=== PATIENT | male | born 2005 | race Caucasian/White ===

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

== ENCOUNTER → 2023-12-22 09:29 | Outpatient (CLI) | payer BC, SELFPAY ==
--- NOTE | ~2023-12-22 | XR_ITS ---
XR shoulder RT min 2V Ordering provider: Jagruti Campbell NP History: . M25.511Pain in right shoulder for two months,no know injury . Comparison: None. FINDINGS: BONES: No acute fracture or dislocation. JOINT SPACES: The acromioclavicular joint is normal. The glenohumeral joint is normal. SOFT TISSUES: Normal. IMPRESSION: No acute osseous abnormality right shoulder. Reviewed, dictated and finalized at location A.
== END ==
LOC: EXPTRAD 09:31
PROVIDERS: PCP Nurse Practitioner Family; Visit Provider Nurse Practitioner Family
DX: M25.511 Pain in right shoulder (principal)
CPT/HCPCS: 73030

== ENCOUNTER 2024-04-23 10:52 | Outpatient (CLI) | payer BC, SELFPAY ==
--- NOTE | ~2024-04-23 | MR_ITS ---
MRI of the right shoulder Technique: Axial proton-density fat-sat images, coronal proton density fat-sat and T2 fat-sat images, and sagittal T1-weighted and T2 fat-sat images were acquired. Clinical History: Pain Findings: No significant degenerative changes at the AC joint. Coracoclavicular, coracoacromial, and coracohumeral ligaments are intact. Supraspinatus and infraspinatus tendons are intact, without partial or full-thickness tear. Subscapul cecilia tendon is intact, with mild to moderate tendinosis. Tendon of long head of the biceps is intact. No labral tear identified. Inferior glenohumeral ligament is intact. No degenerative change or effusion of the glenohumeral join t. No fluid distention of the subacromial/subdeltoid bursa. No muscle atrophy or edema. Impression: [id number] subscapularis tendinosis, otherwise unremarkable exam. Reviewed, dictated and finalized at location . Impression: [id number] subscapularis tendinosis, otherwise unremarkable exam.
== END 2024-04-23 10:53 | disposition home or self-care (01) ==
LOC: MICIMG 10:53
PROVIDERS: PCP Nurse Practitioner Family; Visit Provider Nurse Practitioner Family
DX: M67.813 Other specified disorders of tendon, right shoulder (principal); M25.511 Pain in right shoulder
CPT/HCPCS: 73221

== ENCOUNTER 2024-12-26 17:15 | Observation (INO) | payer BC, SELFPAY ==
--- NOTE | ~2024-12-26 | US_ITS ---
EXAMINATION: US scrotum doppler DATE: 12/26/2024 19:30 INDICATION: Testicular pain TECHNIQUE: Sonographic evaluation of the scrotum was performed assessing grayscale appearance and col or Doppler flow. Spectral Doppler evaluation was also performed. COMPARISON: None. FINDINGS: RIGHT TESTICLE: The right testicle measures 4.1 x 2.7 x 4.0 cm. Arterial and venous flow are present. Moderate right-sided hydrocele is present. RIGHT EPIDIDYMIS: The right epididymis measures 1.6 x 1.7 x 1.4mm. LEFT TESTICLE: The left testicle measures 4.4 x 2.5 x 2.9cm. Arterial and venous flow are demonstrated. Small left-sided hydrocele is present. LEFT EPIDIDYMIS: The left epididymis measures 10 x 7 x 8mm. Possible left epididymal subcentimeter appendage is visualized. IMPRESSION: Moderate right-sided hydrocele. Small left-sided hydrocele. Possible left epididymal appendage, as detailed above. Reviewed, dictated and finalized at location A.
--- NOTE | ~2024-12-26 | CT_ITS ---
CLINICAL INDICATION: Suprapubic and epigastric abdominal pain COMPARISON: None. TECHNIQUE: Multiple contiguous axial images of the abdomen and pelvis were performed following the ad ministration of with 100 mL Omnipaque-350 intravenous contrast The dose-length product (DLP) was 383.09 mGy-cm. Automated exposure control and iterative reconstruction technique were employed. FINDINGS/OBSERVATIONS: Visualized lower thorax: The bilateral lung bases are clear. The heart is of normal size, without pericardial effusion. Liver: The liver demonstrates homogeneous enhancement and is not enlarged. Gallbladder and biliary system: The gallbladder is only minimally distended, and otherwise unremarkable. Pancreas: The pancreas enhances homogeneously without ductal dilatation. Spleen: The spleen enhances homogeneously and is not enlarged. Kidneys: The bilateral kidneys enhance symmetrically without hydronephrosis or renal calculi. Adrenal glands: Unremarkable. Gastrointestinal tract: Fecal stasis within the colon. Appendix: The fluid-filled appendix is distended and hyperemic measuring 13 mm in caliber with a appendicolith in its proximal third. Surrounding inflammatory change is also noted. Vasculature: Unremarkable. Lymph nodes: No pathologically enlarged or morphologically suspicious lymph nodes within the retroperitoneum or at the root of the mesentery. Pelvic structures: The bladder is decompressed, limiting its evaluation. The prostate gland is not enlarged. Body wall and musculoskeletal: No significant degenerative disease within the lower thoracic or lumbosacral spine. IMPRESSION: Acute, nonperforated, appendicitis, as detailed above Reviewed, dictated and finalized at location A.
[2024-12-26 17:23] VITALS: BP 119/88; PULSE 80; RESP 14; TEMP 36.2; O2SAT 99
--- NOTE | 2024-12-26 18:31 | ED_ITS ---
HPI - Abdominal Pain General Chief Complaint: Abdominal Pain Stated Complaint: ABDOMINAL PAIN Time Seen by Provider: 12/26/24 21:01 Focused HPI: 19 y/o M with no PMHx presents to the ED for abdominal pain and groin pain that started today. States the pain is in his epigastrium, suprapubic region and groin. He took pepto and a gas pill this morning which made his sx worse. Denies dysuria, hematuria, flank pain, fever, n/v/d, penile discharge, concern for STDs. No prior abdominal surgeries. GENERAL: Uncomfortable-appearing, well-nourished, and in no acute distress. HEAD: Normocephalic, atraumatic. CHEST: Clear to auscultation. ?No respiratory distress. ABD: Diffuse abdominal tenderness. No guarding or rigidity. No CVA tenderness : Chaperoned by MARIO Castaneda: Minimal tenderness to bilateral testes . No overlying skin changes or edema. No penile drainage HEART: Regular rate and rhythm.? NEURO: ?Alert and oriented x3. Patient screened in triage and initial orders placed.? ?Additional care and disposition to be based upon?diagnostic testing and treatment. History of Present Illness HPI narrative: Agree with the above triage note Related Data Home Medications ?Medication ?Instructions ?Recorded ?Confirmed ?Last Taken ?Type cetirizine 10 mg tablet (Zyrtec) 10 mg PO DAILY PRN 03/03/22 04/15/24 Unknown History Allergies Allergy/AdvReac Type Severity Reaction Status Date / Time Cephalosporins Allergy Mild Unknown Verified 12/26/24 21:27 Review of Systems 2 Review of Systems: All systems reviewed & are unremarkable except as noted in HPI and below PMFSH Past Medical History Medical History Shoulder impingement Right shoulder pain Pain of right deltoid Ganglion cyst of dorsum of right wrist Dysuria Tinea cruris Wart of hand Seasonal allergies Encounter to establish care ADHD Anxiety Allergies Family History Family History Father Alcoholism Diabetes mellitus Depression Mother Depression Thyroid disorder Grandparent Alcoholism Cancer Heart disease Grandparent Carcinoma of colon Hypertension Social History Social History Smoking status: Never smoker Alcohol intake: current Drinks per week: 10 Alcohol use details: beer, socially on weekends Substance use: never Substance use type: does not use Lack of Transportation: No Lack of Food: Never True Current Housing: I Have Housing Concerned About Future Housing: No Difficulty Paying Gas/Electric Bills: No Difficulty Paying for Meds: No Currently Unemployed: No Education: High School Diploma/GED Difficulty w/ Childcare or Family Care: No Occupation/Education: occupation 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 HEAD: Normocephalic, atraumatic. EYES: EOMI. ENT: Nares clear, no rhinorrhea or epistaxis. Mucous membranes moist. NECK: Supple. CHEST: Clear to auscultation. No respiratory distress. HEART: Regular rate and rhythm. No murmur heard. Normal peripheral pulses. ABDOMEN: Normoactive bowel sounds. Abdomen soft with point tenderness over McBurney's point. No CVA tenderness. : Chaperoned by MARIO Castaneda: No overlying skin changes, edema. Minimal tenderness bilateral testes. No penile discharge or drainage. EXTREMITIES: Normal range of motion. No edema. SKIN: Warm, dry, no rash. NEURO: No focal deficits. Alert and oriented x3 Course Vital Signs Vital signs: Vital Signs Temperature 97.2 F L 12/26/24 17:23 Pulse Rate 80 12/26/24 17:23 Respiratory Rate 14 12/26/24 17:23 Blood Pressure 119/88 12/26/24 17:23 Pulse Oximetry 99 12/26/24 17:23 Oxygen Delivery Room Air 12/26/24 17:23 Temperature 97.2 F L 12/26/24 17:23 Pulse Rate 90 12/26/24 21:26 Respiratory Rate 18 12/26/24 21: Blood Pressure 142/76 H 12/26/24 21: Pulse Oximetry 98 12/26/24 21: Oxygen Delivery Room Air 12/26/24 21:26 MDM - Abdominal Pain MDM Narrative Medical decision making narrative: 19-year-old male with no significant past medical history presents emergency department for diffuse abdominal pain that started today. Vitals are stable. Exam is significant for point tenderness over McBurney's point. He does have minimal tenderness bilateral testes. Will obtain lab work, CT abdomen pelvis and scrotal ultrasound. CBC with leukocytosis of 13. Chemistries are unremarkable. UA with 2+ ketones, no UTI. Chlamydia, gonorrhea and Trichomonas are negative. Lipase within normal limits. CT abd/pelvis: IMPRESSION: Acute, nonperforated, appendicitis, as detailed above Scrotal US: IMPRESSION: Moderate right-sided hydrocele. Small left-sided hydrocele. Possible left epididymal appendage, as detailed above. Patient updated on results. Presentation consistent with acute appendicitis. Patient was started on Zosyn and given a dose of Toradol with improvement. On re-evaluation he is resting comfortably in exam bed. Discussed findings with surgeon, Dr. Herrera, who accepts patient to his service, likely plans for OR in the morning. Patient was made NPO and started on maintenance fluids. Dr. Herrera advises against Toradol from here on out. Lab Data 12/26/24 19:07 12/26/24 19:07 Labs: Lab Results 12/26/24 Range/Units 19:07 WBC 13.0 H (4.5-10.0) K/mm3 RBC 4.98 (4.6-6.20) M/mm3 Hgb 15.5 (14.0-18.0) g/dL Hct 44.7 (42.0-52.0) % MCV 89.8 (80-100) fl MCH 31.1 (26-34) pg MCHC 34.7 (32-36) g/dl RDW 12.1 (11.5-14.5) % Plt Count 326 (150-375) k/mm3 MPV 9.5 (7.4-10.4) fl Immature Gran % (Auto) 0.4 (0-0.5) % Neut % (Auto) 85.1 H (45.5-73.1) % Lymph % (Auto) 6.3 L (18.3-44.2) % [place] % (Auto) 7.2 (2.6-8.5) % Eos % (Auto) 0.7 (0-4.4) % Baso % (Auto) 0.3 (0.2-1.2) % Lymph # (Auto) 0.82 L (0.9-3.2) K/mm3 [place] # (Auto) 0.9 H (0.1-0.6) K/mm3 Eos # (Auto) 0.1 (0-0.3) K/mm3 Baso # (Auto) 0.0 (0.0-0.1) K/mm3 Abs Immat Gran (auto) 0.05 H (0.00-0.031) K/mm3 Absolute Neuts (auto) 11.1 H (1.3-6.7) K/mm3 Absolute Nucleated RBC 0.000 (0.0-0.012) K/mm3 Nucleated RBC % 0.0 (0.0-0.2) % Sodium 138 (137-145) mmol/L Potassium 3.8 (3.4-5.0) mmol/L Chloride 100 (98-107) mmol/L Carbon Dioxide 24 (22-30) mmol/L Anion Gap 14 H (4-12) mmol/L BUN 15 (9-20) mg/dL Creatinine 0.95 (0.7-1.3) mg/dL Estim Creat Clear Calc 115 ml/min Estimated GFR > 60 (59 - ) Glucose 93 (65-110) mg/dL Calcium 10.1 (8.4-10.2) mg/dL Total Bilirubin 0.6 (0.2-1.3) mg/dL AST 33 (17-59) U/L ALT 27 (6-50) U/L Alkaline Phosphatase 69 (38-126) U/L Total Protein 8.0 (6.3-8.2) g/dL Albumin 5.1 (3.5-5.1) g/dL Lipase 75 (23-300) U/L Urine Color Yellow (Yellow) Urine Appearance Clear (Clear) Urine pH 5.5 (5.0-9.0) Ur Specific [place] 1.019 (1.001-1.035) Urine Protein Negative (Negative) mg/dL Urine Glucose (UA) Negative (Negative) mg/dL Urine Ketones 2+ H (Negative) mg/dL Ur Blood (Man) Negative (Negative) Urine Nitrate Negative (Negative) Urine Bilirubin Negative (Negative) Urine Urobilinogen 0.2 (<2.0) mg/dL Leukocyte Esterase Rfl Negative (Negative) PAULA/UL C. trachomatis (PCR) Not detected (NOT DETECTE) N. gonorrhoeae (PCR) Not detected (NOT DETECTE) T. vaginalis (PCR) Not detected (NOT DETECTE) Imaging Data Radiologist's impression: ITS Impressions Scrotum Ultrasound 12/26/24 20:00 IMPRESSION: Moderate right-sided hydrocele. Small left-sided hydrocele. Possible left epididymal appendage, as detailed above. Abdomen/Pelvis CT 12/26/24 20:09 IMPRESSION: Acute, nonperforated, appendicitis, as detailed above Discharge Plan Discharge Clinical Impression: Acute appendicitis, Hydrocele Patient Disposition: Still a Patient Condition: Stable Instructions: Antibiotic Form Patient Language: [place] Prescriptions: No Action dextroamphetamine-amphetamine [Adderall XR] 10 mg capsule,extended release 24hr 10 mg PO QAM Qty: 30 0RF cetirizine [Zyrtec] 10 mg tablet 10 mg PO DAILY PRN Follow-up/Referrals: Jagruti Campbell NP [Primary Care Provider] -
[2024-12-26] MEDS: KETOROLAC 30 MG/ML VIAL (*BKC) IV PUSH (19:08)
[2024-12-26] MEDS: FAMOTIDINE 20 MG/2 ML VIAL IV PUSH (19:08)
[2024-12-26 19:20] LABS: Basophils Percent Auto 0.3 % (0.2-1.2); Eosinophils Absolute Auto 0.1 K/mm3 (0-0.3); Eosinophils Percent Auto 0.7 % (0-4.4); Hematocrit 44.7 % (42.0-52.0); Hemoglobin 15.5 g/dL (14.0-18.0); Immature Granulocyte Absolute 0.05 K/mm3 (0.00-0.031); Immature Granulocyte Percent A 0.4 % (0-0.5); Lymphocytes Absolute Auto 0.82 K/mm3 (0.9-3.2); Lymphocytes Percent Auto 6.3 % (18.3-44.2); Mean Corpuscular HGB Conc 34.7 g/dl (32-36); Mean Corpuscular Hemoglobin 31.1 pg (26-34); Mean Corpuscular Volume 89.8 fl (80-100); Mean Platelet Volume 9.5 fl (7.4-10.4); Monocytes Absolute Auto 0.9 K/mm3 (0.1-0.6); Monocytes Percent Auto 7.2 % (2.6-8.5); Neutrophils Absolute Auto 11.1 K/mm3 (1.3-6.7); Neutrophils Percent Auto 85.1 % (45.5-73.1); Platelet Count Result 326 k/mm3 (150-375); Red Blood Count 4.98 M/mm3 (4.6-6.20); Red Cell Distribution Width 12.1 % (11.5-14.5)
[2024-12-26 19:32] LABS: Alanine Aminotransferase 27 U/L (6-50); Albumin Level 5.1 g/dL (3.5-5.1); Alkaline Phosphatase 69 U/L (38-126); Anion Gap 14 mmol/L (4-12); Aspartate Amino Transferase 33 U/L (17-59); Bilirubin,Total 0.6 mg/dL (0.2-1.3); Blood Urea Nitrogen 15 mg/dL (9-20); Calcium 10.1 mg/dL (8.4-10.2); Carbon Dioxide 24 mmol/L (22-30); Chloride 100 mmol/L (98-107); Estimated CRCL calculation 115 ml/min; Estimated Glomerular Filt Rate > 60; Glucose 93 mg/dL (65-110); Lipase 75 U/L (23-300); Potassium 3.8 mmol/L (3.4-5.0); Sodium 138 mmol/L (137-145)
[2024-12-26 20:03] LABS: Add Urine Microscopic? NO; Appearance Urine Clear (Clear); Bilirubin Urine Negative (Negative); Blood Urine Negative (Negative); Color Urine Yellow (Yellow); Glucose Urine UA Negative (Negative); Ketones Urine 2+ mg/dL (Negative); Leukocyte Esterase Ur Negative LEU/UL (Negative); Nitrate Urine Negative (Negative); Protein Urine Negative (Negative); Specific Grav Ur 1.019 (1.001-1.035); Urobilinogen Urine 0.2 mg/dL (<2.0); pH Urine 5.5 (5.0-9.0)
[2024-12-26 20:41] LABS: Trichomonas Vag PCR NOT DETECTED (NOT DETECTE)
[2024-12-26 21:04] LABS: Chlamydia trachomatis NOT DETECTED (NOT DETECTE); Neisseria gonorrhoeae PCR NOT DETECTED (NOT DETECTE)
[2024-12-26 21:20] VITALS: BP 142/76; PULSE 86; RESP 17; O2SAT 98
[2024-12-26 21:26] VITALS: BP 142/76; PULSE 90; RESP 18; O2SAT 98
[2024-12-26 21:42] LABS: Lactic Acid Reflex 0.5 mmol/L (0.7-2.0)
[2024-12-26] MEDS: PIPERACILLN/TAZ 3.375GM/NS50ML 3.375 GM/50 ML BAG IVPB (22:04)
[2024-12-26] MEDS: MORPHINE SULFATE (*CRX) 4 MG/ML INJ IV PUSH (22:51)
[2024-12-26] MEDS: SODIUM CHLORIDE 0.9% IV 1,000 ML 125 ML IV CONT (22:53)
[2024-12-26 23:27] VITALS: BP 148/64; PULSE 91; RESP 17; O2SAT 99
[2024-12-26 23:29] VITALS: BP 148/64; PULSE 94; RESP 17; O2SAT 100
[2024-12-27 00:02] VITALS: BMI 23.1
[2024-12-27 00:04] VITALS: BP 137/73; PULSE 104; RESP 18; TEMP 37.4; O2SAT 100
--- NOTE | 2024-12-27 01:43 | ADMGEN ---
This patient, Ely Tellez, was admitted to [address] [place] [address] Room 307-02. Patient/family oriented to hospital policies and general routines including ID bracelet, bed and alarms, visiting hours, pain management, procedures, bathroom and other care routines, personal items, smoking policy, room service/diet, and visiting hours. Information on how to activate the Rapid Response Team has been discussed. Patient/Family are encouraged to report perceived risks to care and to ask questions if they do not understand what they are told or what they should do.
[2024-12-27] MEDS: MORPHINE SULFATE (*CRX) 4 MG/ML INJ IV PUSH ×2 (05:39→07:46)
[2024-12-27] MEDS: PIPERACILLN/TAZ 3.375GM/NS50ML 3.375 GM/50 ML BAG IVPB ×2 (05:39→13:45)
[2024-12-27] MEDS: SODIUM CHLORIDE 0.9% IV 1,000 ML 125 ML IV CONT (05:39)
[2024-12-27 06:00] VITALS: BP 129/57; PULSE 80; RESP 18; TEMP 36.2; O2SAT 98
--- NOTE | 2024-12-27 08:05 | PM.IMHP ---
H&P: HPI History of Present Illness Date/Time: 12/27/24 08:05 Chief Complaint: Acute appendicitis Narrative: 19-year-old male presented to the emergency room with a 1 day history of worsening abdominal pain which localized right lower quadrant of the abdomen. No fever at home. White blood cell count 12,[address] scan abdomen pelvis showed a dilated inflamed appendix with a retained pedicle length. No perforation and no abscess. He has been stable overnight on IV antibiotics. He has been kept NPO. He will need to go to the operating room later this morning for an urgent laparoscopic appendectomy. Review of Systems Review of Systems: The remainder of the review of systems to include constitutional, HEENT, cardiovascular, respiratory, GI, , integumentary, musculoskeletal, endocrine, immunologic, hematologic, psychiatric, and neurologic are all negative except for which is mentioned above in the HPI. [facility] Past Medical History Medical History Shoulder impingement Right shoulder pain Pain of right deltoid Ganglion cyst of dorsum of right wrist Dysuria Tinea cruris Wart of hand Seasonal allergies Encounter to establish care ADHD Anxiety Allergies Family History Family History Father Alcoholism Diabetes mellitus Depression Mother Depression Thyroid disorder Grandparent Alcoholism Cancer Heart disease Grandparent Carcinoma of colon Hypertension Social History Social History Smoking status: Light tobacco smoker Tobacco type: smokeless tobacco Smokeless tobacco user: dissolvable tobacco Alcohol intake: current Drinks per week: 10 Alcohol use details: beer, socially on weekends Substance use: never Substance use type: does not use Do You Feel Safe in your Home?: Yes Lack of Transportation: No Lack of Food: Never True Current Housing: I Have Housing Concerned About Future Housing: No Difficulty Paying Gas/Electric Bills: No Difficulty Paying for Meds: No Currently Unemployed: No Education: High School Diploma/GED Difficulty w/ Childcare or Family Care: No Occupation/Education: occupation 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[employer], 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 [employer] Spiritual care concerns: No Meds Home Medications and Allergies Home Medications ?Medication ?Instructions ?Recorded ?Confirmed ?Type No Home Medications 12/27/24 12/27/24 History Allergies Allergy/AdvReac Type Severity Reaction Status Date / Time Cephalosporins Allergy Mild Unknown Verified 12/27/24 00:08 Vital Signs Vital Signs - 24 hr 12/26/24 17:23 12/26/24 21:20 12/26/24 21:26 Temperature 36.2 C L Pulse Rate 80 86 90 Respiratory Rate 14 17 18 Blood Pressure 119/88 142/76 H 142/76 H Pulse Oximetry 99 98 98 Oxygen Delivery Room Air Room Air 12/26/24 23:27 12/26/24 23:29 12/27/24 00:04 Temperature 37.4 C Pulse Rate 91 94 104 H Respiratory Rate 17 17 18 Blood Pressure 148/64 H 148/64 H 137/73 Pulse Oximetry 99 100 100 Oxygen Delivery 12/27/24 06:00 Temperature 36.2 C L Pulse Rate 80 Respiratory Rate 18 Blood Pressure 129/57 L Pulse Oximetry 98 Oxygen Delivery Exam Const: General: comfortable and no acute distress HENMT: Ears: TM's normal bilaterally Face/Nose/Sinus: Normal nares present Mouth: Yes moist mucous membranes Eyes: General: appearance normal, both eyes and all related structures Sclera: sclerae normal Pupils: Equal, round and reactive pupils present EOM: EOMs intact bilaterally Neck: Neck: supple and no JVD Resp: Effort & Inspection: normal respiratory effort Auscultation: clear to auscultation bilaterally Cardio: Rate: regular rate Rhythm: regular rhythm GI: Other: Soft nondistended. Moderate tenderness with guarding in the right lower quadrant over McBurney's point. No generalized peritoneal signs. No surgical scars and no ventral hernias. Skin: General skin exam: normal color and no rashes or lesions noted Neuro: General: gait normal Speech: normal speech Motor exam (neuro): 5/5 motor strength present throughout Sensory Exam: normal sensation Extrem: General: normal to inspection Psych: Mental Status: mental status grossly normal Affect: normal affect H&P: Results Labs Labs: Short CBC 12/26/24 Range/Units 19:07 WBC 13.0 H (4.5-10.0) K/mm3 Hgb 15.5 (14.0-18.0) g/dL Hct 44.7 (42.0-52.0) % Plt Count 326 (150-375) k/mm3 [facility] 12/26/24 19:07 Sodium 138 Potassium 3.8 Chloride 100 Carbon Dioxide 24 BUN 15 Creatinine 0.95 Glucose 93 Calcium 10.1 Liver Function 12/26/24 Range/Units 19:07 Total Bilirubin 0.6 (0.2-1.3) mg/dL AST 33 (17-59) U/L ALT 27 (6-50) U/L Alkaline Phosphatase 69 (38-126) U/L Albumin 5.1 (3.5-5.1) g/dL Urine 12/26/24 Range/Units 19:07 Urine Color Yellow (Yellow) Urine Appearance Clear (Clear) Urine pH 5.5 (5.0-9.0) Ur Specific [place] 1.019 (1.001-1.035) Urine Protein Negative (Negative) mg/dL Urine Glucose (UA) Negative (Negative) mg/dL Assessment and Plan Assessment and plan (1) Acute appendicitis: Qualifiers: Acute appendicitis type: with localized peritonitis Appendicitis abscess presence: without abscess Appendicitis gangrene presence: without gangrene Appendicitis perforation presence: without perforation Qualified Code(s): K35.30 - Acute appendicitis with localized peritonitis, without perforation or gangrene Code(s): K35.80 - Unspecified acute appendicitis Status: Acute Assessment and Plan: Patient appears to have an uncomplicated acute appendicitis due to appendicoliths. He has remained stable overnight. IV antibiotics have been administered. Will plan on proceeding to the operating room this morning for an urgent laparoscopic appendectomy possible open appendectomy. Risks, benefits, indications, and expected outcomes were discussed in detail with the patient and/or family. They understand and I have answered all other questions. They wished to proceed with surgery as outlined above.
--- NOTE | 2024-12-27 08:09 | WPDHPUPDATE1 ---
History and Physical Update Update Date/Time: 12/27/24 08:09 History and Physical has been reviewed, including an updated exam of the patient. There are NO changes in the patient's condition. Risks, benefits, and alternatives have been discussed and questions answered. Patient agrees to proceed with procedure.
--- NOTE | 2024-12-27 08:16 | P.PNAN_ITS ---
Anes - Initial Pre Proc Eval Procedure: Operation Date: 12/27/24 10:00 Proposed Procedures p Laparoscopic Appendectomy - Victorino Herrera MD Date/Time: 12/27/24 08:16 Surgeon: Victorino Herrera MD Pre Op Diagnosis: Acute appendicitis Patient Data Age: 19 Gender: M Height: 1.8 m Weight: 75.3 kg Last Vital Signs Temp 36.2 C L 12/27/24 06:00 Pulse 80 12/27/24 06:00 Resp 18 12/27/24 06:00 BP 129/57 L 12/27/24 06:00 Pulse Ox 98 12/27/24 06:00 O2 Del Method Room Air 12/26/24 21:26 Allergies Allergy/AdvReac Type Severity Reaction Status Date / Time Cephalosporins Allergy Mild Unknown Verified 12/27/24 00:08 Home Medications ?Medication ?Instructions ?Recorded ?Confirmed ?Type No Home Medications 12/27/24 12/27/24 History Laboratory Tests 12/26/24 12/26/24 19:07 21:25 WBC 13.0 H K/mm3 (4.5-10.0) RBC 4.98 M/mm3 (4.6-6.20) Hgb 15.5 g/dL (14.0-18.0) Hct 44.7 % (42.0-52.0) MCV 89.8 fl (80-100) MCH 31.1 pg (26-34) MCHC 34.7 g/dl (32-36) RDW 12.1 % (11.5-14.5) Plt Count 326 k/mm3 (150-375) MPV 9.5 fl (7.4-10.4) Immature Gran % (Auto) 0.4 % (0-0.5) Neut % (Auto) 85.1 H % (45.5-73.1) Lymph % (Auto) 6.3 L % (18.3-44.2) [place] % (Auto) 7.2 % (2.6-8.5) Eos % (Auto) 0.7 % (0-4.4) Baso % (Auto) 0.3 % (0.2-1.2) Lymph # (Auto) 0.82 L K/mm3 (0.9-3.2) [place] # (Auto) 0.9 H K/mm3 (0.1-0.6) Eos # (Auto) 0.1 K/mm3 (0-0.3) Baso # (Auto) 0.0 K/mm3 (0.0-0.1) Abs Immat Gran (auto) 0.05 H K/mm3 (0.00-0.031) Absolute Neuts (auto) 11.1 H K/mm3 (1.3-6.7) Absolute Nucleated RBC 0.000 K/mm3 (0.0-0.012) Nucleated RBC % 0.0 % (0.0-0.2) Sodium 138 mmol/L (137-145) Potassium 3.8 mmol/L (3.4-5.0) Chloride 100 mmol/L (98-107) Carbon Dioxide 24 mmol/L (22-30) Anion Gap 14 H mmol/L (4-12) BUN 15 mg/dL (9-20) Creatinine 0.95 mg/dL (0.7-1.3) Estim Creat Clear Calc 115 ml/min Estimated GFR > 60 (59 - ) Glucose 93 mg/dL (65-110) Lactic Acid 0.5 L mmol/L (0.7-2.0) Calcium 10.1 mg/dL (8.4-10.2) Total Bilirubin 0.6 mg/dL (0.2-1.3) AST 33 U/L (17-59) ALT 27 U/L (6-50) Alkaline Phosphatase 69 U/L (38-126) Total Protein 8.0 g/dL (6.3-8.2) Albumin 5.1 g/dL (3.5-5.1) Lipase 75 U/L (23-300) Urine Color Yellow (Yellow) Urine Appearance Clear (Clear) Urine pH 5.5 (5.0-9.0) Ur Specific [place] 1.019 (1.001-1.035) Urine Protein Negative mg/dL (Negative) Urine Glucose (UA) Negative mg/dL (Negative) Urine Ketones 2+ H mg/dL (Negative) Ur Blood (Man) Negative (Negative) Urine Nitrate Negative (Negative) Urine Bilirubin Negative (Negative) Urine Urobilinogen 0.2 mg/dL (<2.0) Leukocyte Esterase Rfl Negative PAULA/UL (Negative) C. trachomatis (PCR) Not detected (NOT DETECTE) N. gonorrhoeae (PCR) Not detected (NOT DETECTE) T. vaginalis (PCR) Not detected (NOT DETECTE) Patient hx anesthesia problems: none Family hx anesthesia problems: none Results Review: All pre-operative results and documents have been reviewed as part of the pre- operative evaluation. [facility] Past Medical History Medical History Shoulder impingement Right shoulder pain Pain of right deltoid Ganglion cyst of dorsum of right wrist Dysuria Tinea cruris Wart of hand Seasonal allergies Encounter to establish care ADHD Anxiety Allergies Family History Family History Father Alcoholism Diabetes mellitus Depression Mother Depression Thyroid disorder Grandparent Alcoholism Cancer Heart disease Grandparent Carcinoma of colon Hypertension Social History Social History Smoking status: Light tobacco smoker Tobacco type: smokeless tobacco Smokeless tobacco user: dissolvable tobacco Alcohol intake: current Drinks per week: 10 Alcohol use details: beer, socially on weekends Substance use: never Substance use type: does not use Do You Feel Safe in your Home?: Yes Lack of Transportation: No Lack of Food: Never True Current Housing: I Have Housing Concerned About Future Housing: No Difficulty Paying Gas/Electric Bills: No Difficulty Paying for Meds: No Currently Unemployed: No Education: High School Diploma/GED Difficulty w/ Childcare or Family Care: No Occupation/Education: occupation 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 Informed Consent: The patient's anesthetic plan and its attendant risks and benefits were discussed with the patient/family/POA. Questions were solicited and answers provided to the satisfaction of the patient/family/POA.
--- NOTE | 2024-12-27 08:30 | PC.NURSE ---
Addendum entered by Vanessa Llamas RN 12/27/24 08:42: to OR per bed, IV left forearm. Original Note: To OR per [ ], IV [ ]. Report given to [ ].
--- NOTE | 2024-12-27 09:50 | S_PTH ---
PATIENT: Ely Tellez LOC: [id number] U#:[id number] AGE/SX: 19/M ROOM: 307 RE12/26/[address]: Victorino Herrera MD : 2005 BED: 02 DIS: 12/27/2024 SPEC #: [id number] RECD: 12/29/24 07:59 STATUS: SOUSarah REQ #: [id number] LAVERN: 12/27/24 09:[address]: Victorino Herrera DEPT: [facility] Surgical RECD BY: Patrica Beach ENTERED: 12/29/24 07:59 SP TYPE: Surgical OTHR DR: Jagruti Campbell APRN Tissues: A - Appendix Procedures: Hematoxylin and Eosin Stain Gross and Microscopic Level 3
[2024-12-27] MEDS: LIDO 1%/EPINEPHRINE 1:100,000 20 ML VIAL 30 ML INFILTRATE (09:54)
[2024-12-27] MEDS: BUPivacaine HCL 0.5% PF 30 ML VIAL INFILTRATE (09:57)
--- NOTE | 2024-12-27 10:29 | P.OP_ITS ---
Procedure Note - Detailed Date of Procedure 12/27/24 Pre-op Diagnosis Acute appendicitis Post-op Diagnosis Same Procedure Performed Laparoscopic appendectomy Surgeon Victorino Herrera MD Agronomy Location Manager Lula MAJOR Anesthesia General Indications Patient is a 19-year-old white male presented to the emergency with a 1 day history of right lower quadrant abdominal pain. [place] [address] scan and pelvis showed a dilated acute inflamed appendix with appendicoliths. No perforation or abscess seen. Presents now for emergent laparoscopic appendectomy. Findings The appendix is found in the right lower quadrant the abdomen. The midportion was gangrenous but there is no evidence of perforation and no periappendiceal abscess. The base of the appendix was viable without significant inflammation. There was a palpated appendicolith once the specimen was removed. Description of Procedure After informed consent was obtained patient brought to the operating room was placed supine position and general endotracheal anesthesia was administered. The abdomen was then prepped and draped usual sterile fashion after placement of Granger catheter to decompress the bladder. A time-out was then performed correctly identifying the patient as well as procedure to be performed. He was already on scheduled IV antibiotics. I then started to entered the abdomen left upper quadrant utilizing a 5mm Optiview port. Once inside the abdomen insufflated to adequate pneumoperitoneum of 15mmHg of CO2. I had an unobstructed view of the right lower quadrant and pelvis. I then placed a 5mm suprapubic trocar port, a 12mm periumbilical trocar, and a 5mm right lower quadrant trocar port all under visualization. Working through these ports utilizing laparoscopic instruments I was able to identify the appendix and elevated to identify the base of the appendix. The base of the appendix appeared to be viable without evidence significant inflammation. The midportion appendix was gangrenous but there is no perforation and no periappendiceal abscess. I made a defect through the mesoappendix utilizing a [place] dissector. A blue load to the 45mm Endo-ENRICO stapler was then used to divide the appendix flush with the cecum. A vascular reload to the same laparoscopic stapler was then used to divide the mesoappendix. The appendix was then placed into an Endo-Catch bag and brought out through the periumbilical trocar port site. The appendix was palpated and had and appendicoliths within the midportion of the appendix. The appendix and appendicolith was sent to pa thology for examination. I then irrigated out the right lower quadrant the abdomen and the pelvis with sterile saline solution. Hemostasis was good on the staple lines. I then aspirated all the fluid from the pelvis. I then removed all the trocar ports under visualization all port sites appeared to be hemostatic. The abdomen was then decompressed. I then closed the 12mm periumbilical trocar port fascial defect utilizing 0 Vicryl suture in a figure- eight fashion. The skin edges on all the port sites were then approximated utilizing a running subcuticular 4-0 Monocryl suture. The incisions were then cleaned the skin glue was applied. The patient tolerated the procedure well no complications. All sponges, needles, and instrument counts were correct at the end procedure. EBL was _20__cc. The patient was awakened and taken to recovery in stable and satisfactory condition. Implants None Estimated Blood Loss 20 Drains No Packing No Pathology Yes (Appendix and appendicoliths to pathology) Complications No immediate complications Condition Stable Disposition PACU [facility] Billing Surgery - Charge Forward: Surgery Billing
--- NOTE | 2024-12-27 10:36 | PM.DS ---
DS: Admitting Diagnosis Discharge Date December 27, 2024 Admitting Diagnosis Acute appendicitis DS: Discharge Diagnosis Discharge Diagnosis (1) Acute appendicitis: Qualifiers: Acute appendicitis type: with localized peritonitis Appendicitis abscess presence: without abscess Appendicitis gangrene presence: without gangrene Appendicitis perforation presence: without perforation Qualified Code(s): K35.30 - Acute appendicitis with localized peritonitis, without perforation or gangrene Code(s): K35.80 - Unspecified acute appendicitis Status: Acute DS: Summary Hospital Course Reason for hospitalization: Acute appendicitis Hospital Course: The patient was seen initially in the emergency room after presented with a 1 day history of generalized abdominal pain was eventually localized to right lower quadrant the abdomen. He had no fevers at home. No nausea vomiting[place] [address] emergency room. Physical examination revealed point tenderness the right lower quadrant the abdomen over McBurney's point. CT scan abdomen pelvis showed a dilated acutely inflamed appendix with a appendicoliths within the midportion of the appendix. There is no perforation or periappendiceal abscess noted. The patient was admitted to the hospital and started on Zosyn for IV antibiotics. He was kept NPO overnight. He was comfortable overnight and the next morning he was taken to the operating room where he underwent uncomplicated laparoscopic appendectomy. There is no perforation of the appendix and no abscess. The midportion of the appendix was gangrenous and there was then a appendicoliths noted. Postoperatively his course in the recovery was uneventful needs transfer to surgical floor for routine postoperative care. One surgical floor he was able to get up and ambulate to the bathroom without difficulty. Here in new spontaneously without difficulty. Pain was well controlled with nonnarcotic and narcotic oral pain medications. He tolerated a regular diet without difficulty. Later on the day of surgery he was doing well ambulating and tolerating solid food without any nausea or vomiting. He was afebrile his vital signs were stable. His incisions were dry and healing with skin glue in place. It was decided on the evening of surgery he was doing well and to be discharged home. Due to the gangrenous nature of the appendix he was kept on IV antibiotics 1 more dose after surgery. He was then discharged home with 5 days of oral antibiotics as well. Patient will follow-up see me in the office in 2 weeks. Postoperative instructions are as per the routine post appendectomy orders. Status at Discharge Functional status at discharge: independent ambulation Overall status at discharge: patient is back to baseline Time Spent with Patient Time attestation: Total time spent providing and/or coordinating discharge services: Time spent: Less than 30 minutes Exam GI: Other: Abdomen is soft and nondistended. Port port site incisions are healing well without redness or bleeding. No drainage. Skin glue in place. Expected mild soreness around the port sites but no generalized peritoneal signs. Exam is benign. DS: Data Data Completed and Pending Pending studies at discharge: Pending at discharge 12/27/24 09:50 Surgical [PTH] Routine Labs on day of discharge: Labs from last 24 hours 12/26/24 12/26/24 21:25 19:07 WBC 13.0 H RBC 4.98 Hgb 15.5 Hct 44.7 MCV 89.8 MCH 31.1 MCHC 34.7 RDW 12.1 Plt Count 326 MPV 9.5 Immature Gran % (Auto) 0.4 Neut % (Auto) 85.1 H Lymph % (Auto) 6.3 L [place] % (Auto) 7.2 Eos % (Auto) 0.7 Baso % (Auto) 0.3 Lymph # (Auto) 0.82 L [place] # (Auto) 0.9 H Eos # (Auto) 0.1 Baso # (Auto) 0.0 Abs Immat Gran (auto) 0.05 H Absolute Neuts (auto) 11.1 H Absolute Nucleated RBC 0.000 Nucleated RBC % 0.0 Sodium 138 Potassium 3.8 Chloride 100 Carbon Dioxide 24 Anion Gap 14 H BUN 15 Creatinine 0.95 Estim Creat Clear Calc 115 Estimated GFR > 60 Glucose 93 Lactic Acid 0.5 L Calcium 10.1 Total Bilirubin 0.6 AST 33 ALT 27 Alkaline Phosphatase 69 Total Protein 8.0 Albumin 5.1 Lipase 75 Urine Color Yellow Urine Appearance Clear Urine pH 5.5 Ur Specific [place] 1.019 Urine Protein Negative Urine Glucose (UA) Negative Urine Ketones 2+ H Ur Blood (Man) Negative Urine Nitrate Negative Urine Bilirubin Negative Urine Urobilinogen 0.2 Leukocyte Esterase Rfl Negative C. trachomatis (PCR) Not detected N. gonorrhoeae (PCR) Not detected T. vaginalis (PCR) Not detected Discharge Plan Discharge Attending physician on discharge: Victorino Herrera Discharging Clinician: Victorino Herrera Anticipated Discharge Date/Time: 12/27/24 17:00 Patient Disposition: Home Activity: other - see discharge instructions Diet: regular Wound Care Instructions: other - see discharge instructions Discharge Instructions: May discharge home when stable. Follow up with Dr. Herrera in the office in 2 weeks. Patient to call [phone] for an appointment. May shower in 24hours but do not soak incisions under water for 2 weeks. No lifting more than 10 to 15 lb for 2 weeks. May advance diet as tolerated. No driving for at least 3 days or until no longer taking any narcotic pain medication. Resume all home medications. Prescription for narcotic pain medicines will be sent to the patient's pharmacy if needed. May use Tylenol and/or ibuprofen in addition to or in place of narcotic pain medications for postoperative pain. Patient Instructions: Antibiotic Form Patient Language: Bur[place]ian Stand Alone Forms: General Discharge Information Follow-up/Referrals: Victorino Herrera MD [Physician] - (Follow-up with Dr. Herrera in the office in 2 weeks. Call [phone] for an appointment.) Discharge Medications: New hydrocodone-acetaminophen 5-325 mg tablet 1 tablet PO Q4H PRN (Reason: pain) Qty: 12 0RF amoxicillin-pot clavulanate 875-125 mg tablet 1 tablet PO Q12H Qty: 10 0RF Date of admission: 12/26/24 21:33 Primary Care Provider: Jagruti Campbell Admitting Provider: Victorino Herrera Attending physician on admission: Victorino Herrera Condition: Stable
[2024-12-27 10:42] VITALS: BP 157/64; PULSE 97; RESP 16; TEMP 36.9; O2SAT 100
[2024-12-27] MEDS: LACTATED RINGERS 1,000 ML 30 ML IV CONT ×2 (10:42)
[2024-12-27 10:55] VITALS: BP 135/46; PULSE 75; RESP 15; O2SAT 99
[2024-12-27 11:10] VITALS: BP 133/64; PULSE 90; RESP 16; O2SAT 97
[2024-12-27 11:20] VITALS: BP 133/64; PULSE 99; RESP 18; O2SAT 97
[2024-12-27] MEDS: HYDROcodone/acetaminophen (*CRX) 5-325 MG TABLET 1 TAB PO (16:30)
== END 2024-12-27 17:45 | disposition home or self-care (01) ==
LOC: ANHED 21:33 → ANH3MEDSUR 22:24
PROVIDERS: Admitting Provider Surgery; Emergency Provider Physician Assistant; PCP Nurse Practitioner Family; Visit Provider Surgery
PROC: 0DTJ4ZZ Resection of Appendix, Percutaneous Endoscopic Approach (ICD-10-PCS; CPT 44970; principal; 2024-12-27 10:00)
DX: K35.32 Acute appendicitis with perforation, localized peritonitis, and gangrene, without abscess (principal); K38.1 Appendicular concretions; N43.3 Hydrocele, unspecified; N50.812 Left testicular pain; N50.811 Right testicular pain; Z72.0 Tobacco use; F90.9 Attention-deficit hyperactivity disorder, unspecified type; F41.9 Anxiety disorder, unspecified
CPT/HCPCS: 44970; 36415; 74177; 76870; 80053; 81003; 83605; 83690; 85025; 87040; 87491; 87591; 87661; 88304; 93976; 96365; 96375; 96376; 99285; A9270; G0378; J1100; J1885; J2004; J2250; J2270; J2405; J2543; J2704; J3010; J7030; J7120; Q9967